=== PATIENT | female | born 1945 | race Caucasian/White ===

== ENCOUNTER 2016-12-02 16:37 | Emergency (ER) | payer MEDICARE, BC ==
[2016-12-02 16:44] VITALS: BMI 28.9
[2016-12-02 17:05] VITALS: TEMP 97.3
--- NOTE | 2016-12-02 17:10 | EDPRACDOC ---
- General Information Chief Complaint: Altered Mental Status Stated Complaint: CONFUSION Time Seen by Provider: 12/02/16 16:57 Home Medications: Home Medications Butalb/Acetaminophen/Caffeine [Nqnwpw-Hsshwzss-Ayto Tab 50/325/40mg] 1 tab PO Q4H PRN 04/09/13 Diazepam 10 mg PO Q6H PRN 04/09/13 Losartan Potassium 100 mg PO DAILY 04/09/13 Nitrofurantoin [Macrodantin] 100 mg PO DAILY 04/09/13 Omeprazole [Prilosec] 20 mg PO DAILY 04/09/13 Promethazine HCl 25 mg PO Q6H PRN 04/09/13 Albuterol Sulfate [Proair Hfa] 2 puff INH Q4H PRN 12/02/16 Ciprofloxacin HCl [Cipro] 500 mg PO BID 12/02/16 Cranberry Extract [Cranberry] 450 mg PO DAILY 12/02/16 Diclofenac Sodium [Voltaren 1% Topical Gel] 2 gm TOP QID PRN 12/02/16 Diphenhydramine [Benadryl] 25 mg PO QHS PRN 12/02/16 Divalproex Sodium [Depakote] 250 mg PO Q12H 12/02/16 Duloxetine [Cymbalta] 60 mg PO DAILY 12/02/16 Estradiol [Estrace] 2 gm PV QHS 12/02/16 Fentanyl [Duragesic] 25 mcg TD UNK #1 box 12/02/16 Furosemide [Lasix] 20 mg PO BID 12/02/16 Levothyroxine Sodium [Synthroid] 50 mcg PO DAILY 12/02/16 Memantine HCl [Namenda] 5 mg PO DAILY 12/02/16 Metoprolol Succinate [Toprol Xl] 50 mg PO DAILY 12/02/16 Montelukast Sodium [Singulair] 10 mg PO QHS 12/02/16 Olanzapine [Zyprexa] 5 mg PO QHS 12/02/16 Potassium Chloride [Klor-Con M10] 10 meq PO DAILY 12/02/16 Pravastatin Sodium 10 mg PO QHS 12/02/16 Quetiapine Fumarate [Seroquel] 50 mg PO QHS 12/02/16 Allergies/Adverse Reactions: Allergies Allergy/AdvReac Type Severity Reaction Status Date / Time prednisone Allergy Angioedema* Verified 07/02/14 20:46 - History of Present Illness Onset: today HPI: PT DIAGNOSED WITH UTI ABOUT 3 DAYS AGO. CONFUSION TODAY. INTERMITTENT SLURRED SPEECH. PT'S SON LIVES WITH HER. PCP LORI MCCARTHY, UROLOGIST BEULAH DIAGNOSED WITH UTI, ON CIPRO. SUPPOSED TO BE ON FOR 3 WEEKS. URINE WAS RUST COLORED, BUT NOW CLEARING. PT WAS ADMITTED TO [facility], DISCHARGED October, THEN WENT TO [facility] D[facility] . FENTANYL PATCH CHANGED YESTERDAY. - Treatment Prior to ED Arrival Reported Medications/Treatment [facility] EMS Treatment ALS IV Yes Comment 20g to [facility] ED Past Medical History - History Reviewed Yes Nurses notes reviewed and agree except as marked - Patient Medical History Cardiac History: Reports: Atrial Fibrillation, Hypertension, Hypercholesterolemia GI/ History: Reports: Urinary Tract Infection, Gastroesophageal Reflux Musculoskeletal History: Reports: Arthritis Surgical History: Reports: Tonsillectomy/Adnoidectomy - Family Medical History Reports: Cardiac Disorders EDM Review of Systems - Review of Systems ROS Negative Except as Marked: Yes All systems reviewed and were negative except as marked - Physical Exam Constitutional: Alert (Awake), No apparent distress Oriented to: Time, Person, Place Last recorded Vital Signs: Last Vital Signs Temp 97.3 F L 12/02/16 16:44 Pulse 68 12/02/16 16:44 Resp 18 12/02/16 16:44 BP 118/73 12/02/16 16:44 Pulse Ox 95 12/02/16 16:44 Oxygen Pulse Oxygen Saturation 95 O2 Device Oxygen Flow Rate Fraction of Inspired Oxygen ( FIO2) - HEENT Head: Normal ( normocephalic) Eye Exam: Normal (PERRL, EOMI, Sclera white) Oropharynx: Normal (Pharynx:Moist without exudate,Gums-no swelling) Nose: No Symptoms Reported (septum midline) Neck: Normal (FROM, trachea at midline) - Respiratory/Cardiovascular Respiratory: Normal - CTA (BBS clear to auscultation without adventitious sounds ) Cardiovascular: Normal (RRR without murmur, gallop or rub) - GI Auscultation: Normal (NABS) Palpation: Normal (Soft,No rebound or guarding, non distended) Tenderness: Non tender Sweet's Sign: Negative - Musculoskeletal Back: Normal (Non-Tender) Extremities: Normal (Normal tone, Pulses 2+ No cyanosis or edema, FROM) - Integumentary Skin: Normal, Warm, Dry, Other (ECCHYMOSIS POSTERIOR RIGHT UPPER ARM.) Lymphatics: Normal (no adenopathy) - Neurologic Memory Impaired: Normal Motor Function: Normal (Normal tone, Pulses 2+ No cyanosis or edema, FROM) Cranial Nerve: Normal (CN II-X11 intact sensation, strength 5/5) Cerebellar: Normal Mood Description: Normal Perception: Normal Other Exam Findings: 0 ON STROKE SCALE. - Re-evaluation Re-evaluation 1 Re-evaluation Time: 18:58 PT NEEDS FENTANYL PATCH DECREASED. SHE IS OVERMEDICATED. - Results 12/02/16 17:00 12/02/16 18:04 - EKG EKG #1 EKG Time: 17:06 -: Yes EKG interpreted by me Rate: bpm: 68 [place]: LAD Rhythm: NSR Block: None Hypertrophy: None ST: Normal Comments: ABNORMAL EKG Decision Time to Discharge: 18:58 - Departure Yes I personally saw and evaluated the patient. Disposition: Home Condition: Stable Final Diagnosis: Narcotic induced mental alteration Instructions: Narcotic Pain Management (ED) Education/Counseling Given To: Patient, Family Member Education/Counseling Given Regarding: Diagnosis Referrals: Lori Mccarthy, ARABELLA [Primary Care Provider] - 1-2 days Additional Instructions: REMOVE 50 MCG FENTANYL PATCH. WAIT [address] 25 MCG FENTANYL PATCH. CHANGE EVERY 72 HOURS.
[2016-12-02 17:31] LABS: AUTOMATED BASOPHIL 0.4 % (0-2); AUTOMATED EOSINOPHIL 7.7 % (0-5); AUTOMATED MONOCYTE 10.9 % (3-10); MPV 9.6 fL (7.4-10.4)
[2016-12-02 17:49] LABS: PARTIAL THROMB. TIME 21.6 SEC (22-35); PT-INR 1.1
--- NOTE | 2016-12-02 17:51 | DIRPT ---
CLINICAL DATA: Confusion and slurred speech. Urinary tract infection. EXAM: PORTABLE CHEST 1 VIEW COMPARISON: 10/07/2016 FINDINGS: Low lung volumes again demonstrated. Heart size is stable. Diffuse interstitial prominence is unchanged and likely chronic in etiology. No evidence of pulmonary consolidation or pleural effusion. IMPRESSION: Low lung volumes with probable chronic interstitial prominence. No acute findings. Electronically Signed By: Musa Boyce M.D. On: 12/02/2016 17:48
--- NOTE | 2016-12-02 17:56 | DIRPT ---
CLINICAL DATA: Increased confusion and altered mental status today. Urinary tract infection. Recent fall with blunt head trauma approximately 1 month ago. EXAM: CT HEAD WITHOUT CONTRAST TECHNIQUE: Contiguous axial images were obtained from the base of the skull through the vertex without intravenous contrast. COMPARISON: 07/02/2014 FINDINGS: There is no evidence of intracranial hemorrhage, brain edema, or other signs of acute infarction. There is no evidence of intracranial mass lesion or mass effect. No abnormal extraaxial fluid collections are identified. Mild cerebral atrophy and moderate ventriculomegaly are stable. No skull fracture or other bone lesions identified. IMPRESSION: No acute intracranial abnormality. Electronically Signed By: Musa Boyce M.D. On: 12/02/2016 17:53
[2016-12-02 18:21] LABS: BLOOD UREA NITROGEN 11 MG/DL (7-17); CALC CORRECTED 9.6 MG/DL (8.4-10.2); CALCIUM 9.1 MG/DL (8.4-10.2); CALCULATED OSMOLALITY 276 MOs/Kg (270-290); CHLORIDE 104 mEq/L (98-107); GLUCOSE 92 MG/DL (70-99); SODIUM LEVEL 144 mEq/L (137-146)
[2016-12-02 18:34] LABS: CA OXALATE OCC; LEUKOCYTES/URINE NEG (NEGATIVE); NITRITE/URINE NEG (NEGATIVE); RBC/URINE 0-2 (0-5); URINE OCCULT BLOOD NEG (NEG/TRACE)
[2016-12-02 19:29] VITALS: BP 95/54; PULSE 74
== END 2016-12-02 19:27 | disposition home or self-care (01) ==
LOC: ED 16:37
DX: R41.82 Altered mental status, unspecified (principal); T40.605A Adverse effect of unspecified narcotics, initial encounter
CPT/HCPCS: 36415; 70450; 71010; 80053; 80164; 81001; 84484; 85025; 85610; 85730; 87086; 93005; 99284

== ENCOUNTER 2016-12-06 14:41 | Emergency (ER) | payer MEDICARE, BC ==
[2016-12-06 15:00] VITALS: BMI 32.8
[2016-12-06 15:41] LABS: ALL NEG? NO
[2016-12-06 15:52] LABS: LEUKOCYTES/URINE NEG (NEGATIVE); NITRITE/URINE NEG (NEGATIVE); RBC/URINE 0-2 (0-5); URINE OCCULT BLOOD NEG (NEG/TRACE)
[2016-12-06 15:54] LABS: MDMA* NEG (NEGATIVE); METHAMPHETAMINES NEG (NEGATIVE); OXYCODONE NEG (NEGATIVE)
--- NOTE | 2016-12-06 16:26 | DIRPT ---
CLINICAL DATA: Shortness of breath. EXAM: CHEST 2 VIEW COMPARISON: 12/02/2016. FINDINGS: Stable asymmetric elevation right hemidiaphragm. The lungs are clear wiithout focal pneumonia, edema, pneumothorax or pleural effusion. Interstitial markings are diffusely coarsened with chronic features. Cardiopericardial silhouette is at upper limits of normal for size. The visualized bony structures of the thorax are intact. IMPRESSION: Stable. Underlying chronic interstitial changes. No acute cardiopulmonary findings. Electronically Signed By: Eulalio Pantoja M.D. On: 12/06/2016 16:23
[2016-12-06 16:31] LABS: AUTOMATED BASOPHIL 0.8 % (0-2); AUTOMATED EOSINOPHIL 5.2 % (0-5); AUTOMATED LYMPH 50.6 % (17-44); AUTOMATED MONOCYTE 11.5 % (3-10); AUTOMATED NEUTROPHIL 31.9 % (45-76); MPV 9.3 fL (7.4-10.4)
--- NOTE | 2016-12-06 16:31 | DIRPT ---
CLINICAL DATA: Fall 3 months ago with persistent right elbow pain. EXAM: RIGHT ELBOW - COMPLETE 3+ VIEW COMPARISON: None. FINDINGS: There is no evidence of fracture, dislocation, or joint effusion. There is no evidence of arthropathy or other focal bone abnormality. Soft tissues are unremarkable. IMPRESSION: Negative. Electronically Signed By: Eulalio Pantoja M.D. On: 12/06/2016 16:28
--- NOTE | 2016-12-06 16:32 | DIRPT ---
CLINICAL DATA: 71-year-old female with acute right hip pain following fall. Initial encounter. EXAM: RIGHT HIP (WITH PELVIS) 2-3 VIEWS COMPARISON: 11/18/[address] FINDINGS: There is no evidence of hip fracture or dislocation. There is no evidence of arthropathy or other focal bone abnormality Mild degenerative changes in the right hip noted. Degenerative changes in the lower lumbar spine. IMPRESSION: No acute abnormality. Mild degenerative changes. Electronically Signed By: Devonte Castillo M.D. On: 12/06/2016 16:30
--- NOTE | 2016-12-06 16:32 | DIRPT ---
CLINICAL DATA: Fall 3 months ago with shoulder pain EXAM: RIGHT SHOULDER - 2+ VIEW COMPARISON: None. FINDINGS: There is no evidence of fracture or dislocation. There is no evidence of arthropathy or other focal bone abnormality. Soft tissues are unremarkable. IMPRESSION: Negative. Electronically Signed By: Eulalio Pantoja M.D. On: 12/06/2016 16:29
--- NOTE | 2016-12-06 16:38 | DIRPT ---
CLINICAL DATA: 71-year-old female with altered mental status. EXAM: CT HEAD WITHOUT CONTRAST TECHNIQUE: Contiguous axial images were obtained from the base of the skull through the vertex without intravenous contrast. COMPARISON: 12/02/2016 and prior exams FINDINGS: Mild chronic small-vessel white matter ischemic changes are again identified. Mild ventriculomegaly is unchanged. No acute intracranial abnormalities are identified, including mass lesion or mass effect, extra-axial fluid collection, midline shift, hemorrhage, or acute infarction. The visualized bony calvarium is unremarkable. IMPRESSION: No evidence of acute intracranial abnormality. Unchanged mild ventriculomegaly which is slightly out of proportion to atrophy - normal pressure hydrocephalus is not entirely excluded. Electronically Signed By: Devonte Castillo M.D. On: 12/06/2016 16:35
[2016-12-06 16:40] LABS: BLOOD UREA NITROGEN 9 MG/DL (7-17); CALC CORRECTED 9.4 MG/DL (8.4-10.2); CALCIUM 8.9 MG/DL (8.4-10.2); CALCULATED OSMOLALITY 273 MOs/Kg (270-290); CHLORIDE 104 mEq/L (98-107); GLUCOSE 89 MG/DL (70-99); SODIUM LEVEL 143 mEq/L (137-146)
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
[2016-12-06 18:38] VITALS: BP 125/74; PULSE 78; TEMP 97.6
[2016-12-07] MEDS ORDERED: ACETAMINOPHEN 325 MG/TAB TABLET PO ONE (20:40)
== END 2016-12-06 18:36 | disposition home or self-care (01) ==
LOC: ED 14:41
DX: M25.521 Pain in right elbow (principal); M25.551 Pain in right hip; M25.511 Pain in right shoulder; G89.29 Other chronic pain
CPT/HCPCS: 36415; 70450; 71020; 73502; 80053; 80307; 81001; 85025; 99283; J3490

== ENCOUNTER 2016-12-06 20:35 | Observation (INO) | payer MEDICARE, BC ==
[2016-12-06 20:35] VITALS: BMI 32.8
[2016-12-06] MEDS ORDERED: LORAZEPAM 2 MG/ML VIAL IM ONE (20:51)
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
[2016-12-06] MEDS ORDERED: NS 1,000 ML IV ONE (20:54)
[2016-12-06] MEDS ORDERED: HALOPERIDOL 5 MG/ML VIAL IM ONE (21:49)
[2016-12-06] MEDS ORDERED: HALOPERIDOL 5 MG/ML VIAL ONE (21:57)
--- NOTE | 2016-12-06 22:00 | DIRPT ---
CLINICAL DATA: Altered mental status. EXAM: PORTABLE CHEST 1 VIEW COMPARISON: Earlier today FINDINGS: No cardiomegaly. Stable aortic and hilar contours. Interstitial crowding on the right from chronic diaphragm elevation. There is no edema, consolidation, effusion, or pneumothorax. No acute osseous finding. IMPRESSION: No acute finding or change from earlier today. Electronically Signed By: Cb Fenton M.D. On: 12/06/2016 21:57
--- NOTE | 2016-12-06 22:07 | DIRPT ---
CLINICAL DATA: Fall from chair this morning. Confusion. Initial encounter. EXAM: CERVICAL SPINE - 1 VIEW COMPARISON: Cervical spine CT 09/05/2015 FINDINGS: Cervicothoracic alignment is obscured by the shoulders. There is no evidence of fracture or traumatic malalignment. C4-5 mild anterolisthesis is chronic since comparison and associated with facet arthropathy. Degenerative disc disease with focally advanced narrowing at C5-6 and C6-7. No prevertebral thickening. IMPRESSION: 1. No acute finding on single lateral view. 2. Degenerative disc and facet disease with chronic C4-5 anterolisthesis. 3. Obscured cervicothoracic alignment. Electronically Signed By: Cb Fenton M.D. On: 12/06/2016 22:05
[2016-12-06 22:23] LABS: AUTOMATED BASOPHIL 0.6 % (0-2); AUTOMATED EOSINOPHIL 2.1 % (0-5); AUTOMATED MONOCYTE 8.9 % (3-10); AUTOMATED NEUTROPHIL 65.4 % (45-76); MPV 9.2 fL (7.4-10.4)
[2016-12-06 22:33] LABS: BLOOD UREA NITROGEN 9 MG/DL (7-17); CALC CORRECTED 9.3 MG/DL (8.4-10.2); CALCULATED OSMOLALITY 275 MOs/Kg (270-290); CHLORIDE 104 mEq/L (98-107); GLUCOSE 109 MG/DL (70-99); SODIUM LEVEL 143 mEq/L (137-146); TOTAL PROTEIN 7.9 G/DL (6.3-8.2)
[2016-12-06 22:38] LABS: PT-INR 1.2
[2016-12-06 23:11] LABS: LEUKOCYTES/URINE NEG (NEGATIVE); NITRITE/URINE NEG (NEGATIVE); RBC/URINE 0-2 (0-5); URINE OCCULT BLOOD NEG (NEG/TRACE)
[2016-12-06 23:12] LABS: ALL NEG? YES; MDMA* NEG (NEGATIVE); METHAMPHETAMINES NEG (NEGATIVE); OXYCODONE NEG (NEGATIVE)
[2016-12-06] MEDS ORDERED: BUTALBITAL PO PRN (23:45)
[2016-12-06] MEDS ORDERED: [UNRECOGNIZED DRUG - OTHER] PO PRN (23:45)
[2016-12-06] MEDS ORDERED: ASA PO PRN (23:45)
[2016-12-06] MEDS ORDERED: FENTANYL 25 MCG PATCH TOP PRN (23:45)
[2016-12-06] MEDS ORDERED: DICLOFENAC 1% TOPICAL GEL 100 GM TUBE TOP PRN (23:45)
[2016-12-06] MEDS ORDERED: DIAZEPAM 10 MG PO PRN (23:45)
[2016-12-06] MEDS ORDERED: CODEINE PO PRN (23:45)
[2016-12-06] MEDS ORDERED: DIPHENHYDRAMINE 25 MG PO PRN (23:45)
[2016-12-06] MEDS ORDERED: CAFFEIN PO PRN (23:45)
[2016-12-06] MEDS ORDERED: DIVALPROEX SODIUM 250 MG TAB PO SCH (23:45)
[2016-12-06] MEDS ORDERED: Aluminum;Magnesium;Simethicone 30 ML UDC PO PRN (23:46)
[2016-12-06] MEDS ORDERED: ZOLPIDEM TARTRATE 5 MG TAB PO PRN (23:46)
[2016-12-06] MEDS ORDERED: ONDANSETRON HCL 4 MG ODT TAB PO PRN (23:46)
[2016-12-06] MEDS ORDERED: LORAZEPAM 1 MG TAB PO PRN (23:46)
[2016-12-06] MEDS ORDERED: MAGNESIUM HYDROXIDE 30 ML BOTTLE PO PRN (23:46)
[2016-12-07] MEDS ORDERED: ALBUTEROL 6.7 GM MDI INH PRN (00:30)
[2016-12-07] MEDS ORDERED: DIPHENHYDRAMINE 25 MG CAP PO PRN (01:46)
[2016-12-07] MEDS: PANTOPRAZOLE 40 MG TAB PO SCH (06:12)
[2016-12-07] MEDS ORDERED: RIVASTIGMINE TARTRATE 4.5 MG PO SCH (09:00)
[2016-12-07] MEDS ORDERED: ESTRADIOL 0.5 MG PO SCH (09:00)
[2016-12-07] MEDS ORDERED: CRANBERRY EXTRACT 450 MG PO SCH (09:00)
[2016-12-07] MEDS ORDERED: Non-Formulary Medication ITEM (Omeprazole 20 MG) PO SCH (09:00)
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
[2016-12-07] MEDS: DULOXETINE 60 MG CAPSULE PO SCH (09:35)
[2016-12-07] MEDS: CIPROFLOXACIN HCL 500 MG TAB PO SCH ×2 (09:35→20:42)
[2016-12-07] MEDS: FUROSEMIDE 20 MG TAB PO SCH ×2 (09:35→17:30)
[2016-12-07] MEDS: DIVALPROEX SODIUM 250 MG TAB PO SCH ×2 (09:36→20:42)
[2016-12-07] MEDS: ESTRADIOL 1 MG TAB PO SCH (09:36)
[2016-12-07] MEDS: METOPROLOL TARTRATE 50 MG TAB PO SCH ×2 (09:37→20:42)
[2016-12-07] MEDS: RIVASTIGMINE TARTRATE 1.5 MG CAP PO SCH (09:37)
[2016-12-07] MEDS: LEVOTHYROXINE 50 MCG (0.05 MG) TAB PO SCH (09:38)
[2016-12-07] MEDS: RISPERIDONE 1 MG TAB PO SCH ×2 (09:38→20:43)
[2016-12-07] MEDS ORDERED: POTASSIUM CHLORIDE 10 MEQ TABLET PO SCH (12:00)
[2016-12-07] MEDS: ACETAMINOPHEN 325 MG/TAB TABLET PO PRN (20:43)
[2016-12-07] MEDS ORDERED: MONTELUKAST SODIUM 10 MG TAB PO SCH (21:00)
[2016-12-07] MEDS ORDERED: NITROFURANTOIN 50 MG CAP PO SCH (21:00)
[2016-12-07] MEDS ORDERED: OLANZAPINE 5 MG TAB PO SCH (21:00)
[2016-12-07] MEDS ORDERED: Non-Formulary Medication ITEM (Pravastatin Sodium [Pravastatin Sodium] 10 MG) PO SCH (21:00)
[2016-12-07] MEDS ORDERED: PRAVASTATIN 20 MG TAB PO SCH (21:00)
[2016-12-07] MEDS ORDERED: DICLOFENAC 1% TOPICAL GEL 100 GM TUBE TOP SCH (22:48)
[2016-12-08] MEDS: PANTOPRAZOLE 40 MG TAB PO SCH (05:54)
[2016-12-08] MEDS: ACETAMINOPHEN 325 MG/TAB TABLET PO PRN (07:40)
[2016-12-08] MEDS: FUROSEMIDE 20 MG TAB PO SCH (09:03)
[2016-12-08] MEDS: CIPROFLOXACIN HCL 500 MG TAB PO SCH (09:10)
[2016-12-08] MEDS: DULOXETINE 60 MG CAPSULE PO SCH (09:11)
[2016-12-08] MEDS: DIVALPROEX SODIUM 250 MG TAB PO SCH (09:13)
[2016-12-08] MEDS: ESTRADIOL 1 MG TAB PO SCH (09:15)
[2016-12-08] MEDS: METOPROLOL TARTRATE 50 MG TAB PO SCH (09:17)
[2016-12-08] MEDS: RIVASTIGMINE TARTRATE 1.5 MG CAP PO SCH (09:17)
[2016-12-08] MEDS: RISPERIDONE 1 MG TAB PO SCH (09:20)
[2016-12-08] MEDS: LEVOTHYROXINE 50 MCG (0.05 MG) TAB PO SCH (09:21)
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
--- NOTE | 2016-12-08 10:17 | TUDEPART ---
Disposition: Trans. to Other Hospital ([place]) Education/Counseling Given To: Patient Education/Counseling Given Regarding: Diagnosis, Treatment, Prognosis, Follow Up Decision to Transfer Time: 10:16 <Micky Harrell - Last Filed: 12/08/16 10:16> Time Seen By Provider: 10:32 Discussion of OBS Stay: WELL APPEARING. REPORTS GOOD APPETITE. FEELS WELL. ALERT AND ORIENTED. MOTOR 5/5 LUNGS CLEAR AUSCULTATION ABDOMEN IS BENIGN SKIN IS WARM AND DRY. STABLE FOR EMS AND LE 0 TRANSPORT TO [facility]. <MongeMichelle - Last Filed: 12/08/16 10:33> Condition: Stable Instructions: Alzheimer Disease (GEN), Dementia (GEN) Follow-up / Referrals: Lori Bourgeois, STROKE BELT SANDER OPERATOR [Primary Care Provider] - One Week - Physical Exam Constitutional: Agitated, Confused, Uncooperative, Writhing Oriented to: Person Last recorded Vital Signs: Last Vital Signs Temp 98.3 F 12/08/16 05:20 Pulse 89 12/08/16 09:17 Resp 20 12/08/16 05:20 BP 143/66 12/08/16 09:17 Pulse Ox 96 12/08/16 09:29 Oxygen Pulse Oxygen Saturation 96 O2 Device Nasal Cannula Oxygen Flow Rate 2 Fraction of Inspired Oxygen ( FIO2) - HEENT Head: Normal ( normocephalic) Eye Exam: Normal (PERRL, EOMI, Sclera white) Oropharynx: Normal (Pharynx:Moist without exudate,Gums-no swelling) Tympanic Membrane: Normal ENT EAC: Normal TMJ: Normal Nose: No Symptoms Reported (septum midline) - Respiratory/Cardiovascular Respiratory: Normal - CTA (BBS clear to auscultation without adventitious sounds ) Cardiovascular: Normal (RRR without murmur, gallop or rub) - GI Auscultation: Normal (NABS) Palpation: Normal (Soft,No rebound or guarding, non distended) Tenderness: Non tender Sweet's Sign: Negative - Musculoskeletal Back: Normal (Non-Tender) Extremities: Normal (Normal tone, Pulses 2+ No cyanosis or edema, FROM) - Integumentary Skin: Normal, Warm, Dry Lymphatics: Normal (no adenopathy) - Neurologic Memory Impaired: Short-term Motor Function: Normal (Normal tone, Pulses 2+ No cyanosis or edema, FROM) Cranial Nerve: Unable to Test Cerebellar: Unable to Test Mood Description: Agitated, Combative, Uncooperative Thought: Rambling Conversation Perception: Normal <Micky Harrell - Last Filed: 12/08/16 10:16> - Physical Exam Last recorded Vital Signs: Last Vital Signs Temp 98.3 F 12/08/16 05:20 Pulse 89 12/08/16 09:17 Resp 20 12/08/16 05:20 BP 143/66 12/08/16 09:17 Pulse Ox 96 12/08/16 09:29 Oxygen Pulse Oxygen Saturation 96 O2 Device Nasal Cannula Oxygen Flow Rate 2 Fraction of Inspired Oxygen ( FIO2) <Michelle Monge - Last Filed: 12/08/16 10:33>
[2016-12-08 10:39] VITALS: BP 130/84; PULSE 90; TEMP 97.9
== END 2016-12-08 10:28 ==
LOC: ED 20:35 → TUOBSINP 23:47
PROVIDERS: ADMIT Physician Assistant Medical; ATTEND Emergency Medicine
DX: R45.1 Restlessness and agitation (principal); F03.90 Unspecified dementia, unspecified severity, without behavioral disturbance, psychotic disturbance, mood disturbance, and anxiety; I48.91 Unspecified atrial fibrillation; I10 Essential (primary) hypertension; K21.9 Gastro-esophageal reflux disease without esophagitis; E78.00 Pure hypercholesterolemia, unspecified; Z79.899 Other long term (current) drug therapy; M25.521 Pain in right elbow; M25.551 Pain in right hip; G89.29 Other chronic pain; M25.511 Pain in right shoulder
CPT/HCPCS: 36415; 70450; 71010; 71020; 72040; 73502; 80053; 80164; 80307; 81001; 84443; 84484; 85025; 85610; 85730; 87086; 93005; 96360; 96372; 97161; 99283; 99285; E0710; G0378; G8978; G8979; J1630; J2060; J3490